=== PATIENT | male | born 1980 | race Caucasian/White ===

== ENCOUNTER → 2024-05-31 14:30 | Outpatient (REF) | payer BC, SELFPAY | LOC: REG 14:30 | PROVIDERS: ATTENDING PHYSICIAN Chiropractor | DX: T78.40XA Allergy, unspecified, initial encounter (principal) | CPT/HCPCS: 36415 ==

== ENCOUNTER 2025-01-02 02:56 | Emergency (ER) | payer BC, SELFPAY ==
[2025-01-02 03:00] VITALS: BMI 20.1
[2025-01-02 03:30] LABS: Hematocrit 40.8 % (39.0-52.0); Hemoglobin 14.0 g/dL (13.0-18.0); Mean Corp Hgb Conc. 34.3 g/dL (33.0-37.0); Mean Corpuscular Volume 90.9 fL (80.0-94.0); Nucleated Red Blood Cells % 0 % (-); Platelet Count 124 10^3/uL (130-400); Red Cell Dist. Width 12.0 % (11.5-14.5)
[2025-01-02 03:41] LABS: ALT (SGPT) 17 U/L (0-50); AST (SGOT) 19 U/L (17-59); Albumin 4.9 g/dl (3.5-5.0); Alkaline Phosphatase 28 U/L (38-126); Blood Urea Nitrogen 28 mg/dl (9-20); Calcium 9.1 mg/dl (8.4-10.2); Carbon Dioxide 26 mmol/L (22-30); Chloride 106 mmol/L (98-107); Estimated Creatinine Clearance 116 ml/min; Glucose 101 mg/dl (70-99); Potassium 4.3 mmol/L (3.5-5.1); Sodium 140 mmol/L (135-145); Total Protein 7.0 g/dl (6.3-8.2); eGFR > 60.00
[2025-01-02 03:53] LABS: Troponin I < 0.012 ng/ml
[2025-01-02 05:06] VITALS: BP 123/77
--- NOTE | 2025-01-02 06:08 | ED.GENMED ---
History of Present Illness
General
Chief Complaint: Chest Pain
Time Seen by Provider: 01/02/25 06:08
History of Present Illness
History of Present Illness:
PAST MEDICAL HISTORY AND REVIEW OF OLD RECORDS
- The patient has a history of Sjogren's. No old records available for review in [facility].
Note:
CHIEF COMPLAINT(S)
Sudden onset of pounding chest sensations and neck discomfort at 2:00 AM.
HISTORY OF PRESENT ILLNESS
The patient is a 44-year-old male who presented with sudden onset of pounding sensations in the chest that began at approximately 2:00 AM, waking him from sleep. He reports struggling to sleep prior to the episode. The sensation was described as a
pounding in sync with a feeling of intense heartbeats. The patient denies any excessive caffeine use but attributes symptoms to a pre-existing neck condition involving instability around the C5-C6 vertebrae, compounded by prolonged neck flexure. He
wears a neck brace due to perceived neck instability, describing the sensation as feeling 'floppy' and unsupported.
The patients history includes a diagnosis of joint hypermobility syndrome, which causes frequent neck and joint flare-ups. He noted a soft sensation in the neck area without recent trauma. He reports longstanding discomfort, attributing some chest
sensations to muscular issues between the ribs. The patient had an EKG and cardiac blood tests performed, both of which returned normal results. He suggests his symptoms may not be cardiac in nature, voicing a concern for musculoskeletal causes.
PLAN
- Repeat cardiac blood test immediately to rule out acute cardiac event; previous troponin level was <0.012, below normal threshold of 0.034.
DIFFERENTIAL DIAGNOSIS
The differential diagnosis includes, in no particular order and is not limited to:
1. Musculoskeletal pain (costochondritis)
2. Panic attack/anxiety disorder
3. Cervical radiculopathy
4. Hypertensive emergency
5. Myocardial infarction (unlikely given normal cardiac tests)
6. Aortic dissection (less likely, consider due to neck symptoms)
7. Tachycardia-related distress
8. Gastroesophageal reflux disease (GERD)
9. Palpitations of non-cardiac origin
10. Sleep apnea-related symptoms
EKG
- Sinus 81, no acute ST abnormality no old to compare.
LABS
- White count 4.0, hemoglobin normal, chemistries relatively unremarkable, troponin less than 0.012
-SUMMARY OF ENCOUNTER
The patient was seen in the emergency department due to sudden onset of pounding chest sensations and neck discomfort experienced at 2:00 AM. Evaluation included reviewing previous cardiac blood tests which returned normal, with a troponin level of
<0.012 indicating no acute cardiac event. No use of stimulants or caffeine was reported. Current findings do not suggest any life-threatening condition. The patient noted the use of a heart monitor he is not sure of the results but reports having a
recent echo that was unremarkable.
DISPOSITION
Discharge.
PLAN
Given the absence of alarming findings and the normal troponin level, discharge is appropriate. The patient is encouraged to continue follow-up with a extrusion press supervisor and consider the results from the heart monitor for ongoing monitoring.
INDEPENDENT REVIEW OF LABS AND INTERPRETATION OF TESTS
My independent review of cardiac blood tests is a troponin <0.012.
FOLLOW-UP INSTRUCTIONS
Please follow up with your extrusion press supervisor to review heart monitor results and ensure ongoing cardiovascular health monitoring.
MEDICAL DECISION MAKING
-Complexity of Data Reviewed: Chronic conditions affecting care include joint hypermobility syndrome. Differential diagnosis considerations included: musculoskeletal pain (costochondritis), panic attack/anxiety disorder, cervical radiculopathy,
hypertensive emergency, myocardial infarction (unlikely given normal cardiac tests), aortic dissection, tachycardia-related distress, GERD, palpitations of non-cardiac origin, and sleep apnea-related symptoms.
-Data:
Category 1
My independent review of cardiac blood test indicates a troponin <0.012, confirming the absence of acute cardiac event as the cause of symptoms.
-Risk:
Consideration of Admission/Observation: Escalation of care including admission/observation was considered given the complexity and risk of the patients presenting complaint, exam findings, and/or their underlying comorbidities. However, ultimately I
feel the patient is safe for outpatient management with close follow-up. Reasoning: Work-up reassuring, does not reveal any acute life/organ threatening processes, patients symptoms well-controlled upon reevaluation, reexamination is reassuring,
vitals are stable, patient agreeable with discharge, reliable for follow-up.
DIAGNOSIS
Palpitations, unspecified (R00.2)
Cervicalgia (M54.2)
Phy Exam
Physical Exam
Physical Exam:
See HPI
Scores
Heart Score for Chest Pain Patients
STEMI patient?: Not applicable
Course
Orders/Labs/Results
Orders:
Orders
01/02/25 02:57
Electrocardiogram (*1) Urgent
Reason for Study: Chest Pain
Cardiac Monitoring- Treatment ONCE
EKG- Treatment ONCE
IV Insert/Care/Rem.- Treatment PRN
O2 Therapy [RESP] Urgent
Titrate/Wean O2 to maintain O2 sat greater than (%): 90
Special Instructions: Maintain sats >/=90%
Pulse Ox/spot Check [RESP] Urgent
Quantity: 1
Special Instructions: ON ROOM AIR
01/02/25 03:12
Complete Blood Count/With Diff Urgent
Comprehensive Metabolic Panel Urgent
Troponin I Urgent
01/02/25 06:34
Troponin I Urgent
Abnormal Lab Results
01/02/25
03:12
WBC 4.0 L 10^3/uL
(4.8-10.8)
RBC 4.49 L 10^6/uL
(4.70-6.10)
MCH 31.2 H pg
(27.0-31.0)
Plt Count 124 L 10^3/uL
(130-400)
Neutrophils % 42.0 L %
(42.2-75.2)
BUN 28 H mg/dl
(9-20)
Glucose 101 H mg/dl
(70-99)
Alkaline Phosphatase 28 L U/L
(38-126)
01/02/25 03:12
01/02/25 03:12
Vital Signs
Initial and Last Documented VS:
Initial Vital Signs
Pulse Ox
99
01/02/25 03:00
Last Documented Vital Signs
Pulse Resp BP Pulse Ox
78 16 114/72 99
01/02/25 07:00 01/02/25 07:00 01/02/25 07:00 01/02/25 07:00
*Pulse Oximetry
SaO2: 100
Oxygen Mode of Delivery: Room air
Patient hypoxic: no
*Critical Care Note
Total Time (30-74mins, 75-104mins- exclusive of procedures): Not Applicable
ED Attending Note
-
Portions of this chart may have been created with voice recognition software.� Occasional wrong word or��sound alike� substitutions may have occurred due to the inherent limitations of voice recognition software.
Discharge Plan
Departure
Patient Disposition: Home (Routine Discharge)
Date of Disposition: 01/02/25
Time of Disposition: 07:35
Patient with high blood pressure during this ER visit?: Yes
Discharge Problem:
Palpitations
Instructions: Chest Pain NON-[facility] Implementation Project Manager Follow Up, BLOOD PRESSURE
Referrals:
UNKNOWN - PT DOES,NOT KNOW [Family Provider]
Activity Restrictions/Additional Instructions:
2 sets of cardiac blood work showed no sign of heart attack. EKG is normal. Other basic labs are unremarkable.
Interventions
Interventions:
*Risk Screen - Suicide Last Done: 01/02/25 03:00
*General Assessment Last Done: 01/02/25 03:00
*Neglect/Abuse Screening Last Done: 01/02/25 03:00
*ED- Fall Risk Assessment Last Done: 01/02/25 03:00
*ED COVID-19 Vaccine History Last Done: 01/02/25 03:00
ED- Cardiac Assessment Last Done: 01/02/25 03:00
Discharge Date and Time
Print Language: YORUBA
[2025-01-02 06:13] VITALS: BP 118/79
[2025-01-02 07:00] VITALS: BP 114/72
[2025-01-02 07:12] LABS: Troponin I < 0.012 ng/ml
== END 2025-01-02 08:04 | disposition home or self-care (01) ==
LOC: EMR 02:56
PROVIDERS: Emergency Medicine; EMERGENCY PHYSICIAN Emergency Medicine
DX: R00.2 Palpitations (principal); M54.2 Cervicalgia; M35.00 Sjogren syndrome, unspecified
CPT/HCPCS: 99284; 80053; 84484; 85025; 93005

== ENCOUNTER 2025-01-02 20:27 | Emergency (ER) | payer BC, SELFPAY ==
[2025-01-02 20:44] VITALS: BP 145/92
[2025-01-02 21:13] LABS: Hematocrit 42.6 % (39.0-52.0); Hemoglobin 14.7 g/dL (13.0-18.0); Mean Corp Hgb Conc. 34.5 g/dL (33.0-37.0); Mean Corpuscular Volume 90.3 fL (80.0-94.0); Nucleated Red Blood Cells % 0 % (-); Platelet Count 148 10^3/uL (130-400); Red Cell Dist. Width 12.0 % (11.5-14.5)
[2025-01-02 21:22] LABS: ALT (SGPT) 19 U/L (0-50); AST (SGOT) 22 U/L (17-59); Albumin 5.2 g/dl (3.5-5.0); Alkaline Phosphatase 32 U/L (38-126); Blood Urea Nitrogen 24 mg/dl (9-20); Calcium 9.7 mg/dl (8.4-10.2); Carbon Dioxide 29 mmol/L (22-30); Chloride 100 mmol/L (98-107); Glucose 104 mg/dl (70-99); Potassium 4.1 mmol/L (3.5-5.1); Sodium 137 mmol/L (135-145); Total Protein 7.6 g/dl (6.3-8.2); eGFR > 60.00
[2025-01-02 21:32] LABS: Troponin I < 0.012 ng/ml
[2025-01-02 23:08] VITALS: BP 136/80
--- NOTE | 2025-01-03 00:41 | ED.GENMED ---
History of Present Illness
General
Chief Complaint: Blood Pressure Problem
Source: patient
Exam Limitations: none
Time Seen by Provider: 01/02/25 23:06
Nursing documentation reviewed up to this point in time: agreed with
History of Present Illness
History of Present Illness:
44-year-old male past medical history of Sjogren syndrome presenting to the emergency department today for concerns of some neck discomfort with radiation to the chest occurred last night. Has had some intermittent symptoms similar in the past.
Denies any numbness weakness chest pain at this point any shortness of breath nausea or vomiting. No shortness of breath no recent trauma surgery immobilization.
Review of Systems
Review of Systems
Allergies reviewed?: Yes
All Other Systems: ROS reviewed and negative except as documented in HPI and ROS
Phy Exam
Physical Exam
Physical Exam:
GENERAL: Alert , in no apparent distress
EYE: pupils equal and reactive
NECK: Supple, no significant adenopathy.
ENT: o/p clr, mmm.
CARDIAC: Regular rate and rhythm .
LUNGS: Clear breath sounds bilaterally, no acute respiratory distress, no wheezes/rales/rhonchi
ABDOMEN: Soft, without focal tenderness, no r/g, no cvat
NEUROLOGICAL: Alert and oriented, no focal neuro deficits
SKIN: Warm and dry, skin intact.
MUSCULOSKELETAL: No edema, well perfused.
PSYCH: Normal and appropriate interaction.
Course
Orders/Labs/Results
Orders:
Orders
01/02/25 20:49
Electrocardiogram (*1) Urgent
Reason for Study: Chest Pain
EKG- Treatment ONCE
01/02/25 20:52
Complete Blood Count/With Diff Urgent
Comprehensive Metabolic Panel Urgent
Troponin I Urgent
01/03/25 00:44
Metoprolol Xl [Toprol Xl] 12.5 mg PO NOW STA
Abnormal Lab Results
01/02/25
20:52
MCH 31.1 H pg
(27.0-31.0)
BUN 24 H mg/dl
(9-20)
Glucose 104 H mg/dl
(70-99)
Alkaline Phosphatase 32 L U/L
(38-126)
Albumin 5.2 H g/dl
(3.5-5.0)
01/02/25 20:52
01/02/25 20:52
Vital Signs
Initial and Last Documented VS:
Initial Vital Signs
Temp Pulse Resp BP Pulse Ox
98.9 F 89 16 145/92 98
01/02/25 20:44 01/02/25 20:44 01/02/25 20:44 01/02/25 20:44 01/02/25 20:44
Last Documented Vital Signs
Temp Pulse Resp BP Pulse Ox
98.9 F 70 16 120/85 97
01/02/25 20:44 01/03/25 00:57 01/03/25 00:57 01/03/25 00:57 01/03/25 00:57
MDM/Problems Addressed
MDM/Problems Addressed:
45-year-old male presenting to the emergency department today with concerns of neck discomfort radiation to the chest. Here vital signs are normal patient no distress normal heart lung examination labs unremarkable troponin negative EKG without
emergent findings. Very low risk for ACS no risk factors for PE patient with likely mechanical discomfort. Advised for close outpatient follow-up. Return precautions given.
*Pulse Oximetry
SaO2: 98
Oxygen Mode of Delivery: Room air
Patient hypoxic: no (97)
*Critical Care Note
Total Time (30-74mins, 75-104mins- exclusive of procedures): Not Applicable
ED Attending Note
-
Portions of this chart may have been created with voice recognition software.� Occasional wrong word or��sound alike� substitutions may have occurred due to the inherent limitations of voice recognition software.
Discharge Plan
Departure
Patient Disposition: Home (Routine Discharge)
Date of Disposition: 01/03/25
Time of Disposition: 00:41
Patient with high blood pressure during this ER visit?: No
Condition: Good
Covid-19: Not Applicable
Discharge Problem:
Neck pain, Chest pain
Instructions: Chest pain - Discharge instructions, Functional neurological symptom disorder
Prescriptions:
New
metoprolol succinate 25 mg tablet extended release 24 hr
12.5 mg PO DAILY 14 Days Qty: 7 0RF
Referrals:
Lizet Arias DO [Family Provider, Family Practice]
Activity Restrictions/Additional Instructions:
You came to the emergency department today with multiple symptoms. Here you had a reassuring assessment for any emergent issues. Please follow-up closely with your neurologist. You can take the prescribed medication to help with symptoms. Return
for new or concerning symptoms.
Interventions
Interventions:
*Risk Screen - Suicide Last Done: 01/02/25 20:44
*General Assessment Last Done: 01/02/25 23:11
*Neglect/Abuse Screening Last Done: 01/02/25 20:44
*ED- Fall Risk Assessment Last Done: 01/02/25 22:44
*ED COVID-19 Vaccine History Last Done: 01/02/25 23:11
*Nursing Disposition Last Done: 01/03/25 00:57
ED- Cardiac Assessment Last Done: 01/02/25 22:10
ED- Neurological Assessment Last Done: 01/02/25 22:10
ED- Pulmonary Assessment Last Done: 01/02/25 22:10
Discharge Date and Time
Discharge Date/Time: 01/03/25 00:59
Print Language: WELSH
[2025-01-03] MEDS: TOPROL XL 12.5 MG PO (00:52)
[2025-01-03 00:57] VITALS: BP 120/85; BMI 22.8
== END 2025-01-03 00:59 | disposition home or self-care (01) ==
LOC: EMR 20:27
PROVIDERS: Emergency Medicine; EMERGENCY PHYSICIAN Emergency Medicine; FAMILY PHYSICIAN Family Medicine
DX: M54.2 Cervicalgia (principal); R07.9 Chest pain, unspecified; M35.00 Sjogren syndrome, unspecified
CPT/HCPCS: 80053; 84484; 85025; 93005; 99283